=== PATIENT | male | born 1960 | race Caucasian/White ===

== ENCOUNTER 2018-01-11 22:40 | Emergency (ER) | payer OTHER ==
[~2018-01-11] VITALS: Ht 182.9 cm; Wt 90.7 kg
[2018-01-11 23:56] LABS: URINE BILIRUBIN NEGATIVE (Negative); URINE BLOOD NEGATIVE (Negative); URINE CLARITY CLEAR; URINE COLOR YELLOW; URINE GLUCOSE-RANDOM NEGATIVE (Negative); URINE KETONES NEGATIVE (Negative); URINE LEUKOCYTES-REFLEX NEGATIVE (Negative); URINE NITRITE-REFLEX NEGATIVE (Negative); URINE PROTEIN NEGATIVE (Negative); URINE SPECIFIC GRAVITY <= 1.005 (1.005-1.030); URINE UROBILINOGEN 0.2 E.U./dl (0.2-1.0)
[2018-01-12] MEDS ORDERED: FLEXERIL PO (00:28)
[2018-01-12] MEDS ORDERED: NORCO 5-325 TA1 EACH PO (00:28)
[2018-01-12 00:39] VITALS: BP 121/77
== END 2018-01-12 00:40 | disposition home or self-care (01) ==
LOC: M.ERS 22:40
PROVIDERS: Nurse Practitioner Family
DX: S39.012A Strain of muscle, fascia and tendon of lower back, initial encounter (principal); Z88.6 Allergy status to analgesic agent; X58.XXXA Exposure to other specified factors, initial encounter; Y93.89 Activity, other specified; Y92.89 Other specified places as the place of occurrence of the external cause; Y99.8 Other external cause status

== ENCOUNTER → 2018-12-24 | Outpatient (CLI) | payer OTHER ==
[~2018-12-24] MED LIST: FLEXERIL PO; NORCO 5-325 TA1 EACH PO
== END ==
LOC: M.ULTRA 10:30
DX: K76.0 Fatty (change of) liver, not elsewhere classified (principal); R74.8 Abnormal levels of other serum enzymes

== ENCOUNTER 2020-11-02 13:30 | Emergency (ER) | payer OTHER ==
[~2020-11-02] VITALS: Ht 182.9 cm; Wt 93.0 kg
[2020-11-02 17:07] VITALS: BP 141/92
== END 2020-11-02 17:11 | disposition home or self-care (01) ==
LOC: M.ERS 13:30
DX: S93.491A Sprain of other ligament of right ankle, initial encounter (principal); S80.811A Abrasion, right lower leg, initial encounter; Z88.6 Allergy status to analgesic agent; W11.XXXA Fall on and from ladder, initial encounter; Y93.89 Activity, other specified; Y92.89 Other specified places as the place of occurrence of the external cause; Y99.8 Other external cause status

== ENCOUNTER 2021-04-06 16:48 | Emergency (ER) | payer OTHER ==
[~2021-04-06] VITALS: Ht 182.9 cm; Wt 99.8 kg
[~2021-04-06 16:48] MED LIST changes: -HYDROCODON-ACE1 EAC7 PO; -ZOFRAN ODT4 MG PO
[2021-04-06 19:33] LABS: INFLUENZA A ANTIGEN Negative (Negative)
[2021-04-06 20:15] LABS: ABSOLUTE BASOPHILS 0.1 thou/uL (0.0-0.2); ABSOLUTE EOSINOPHILS 0.2 thou/uL (0.0-0.7); ABSOLUTE LYMPHOCYTES 2.3 thou/uL (0.8-5.3); ABSOLUTE NEUTROPHILS 3.7 thou/uL (1.6-8.1); HEMATOCRIT 39.7 % (42.0-52.0); PLATELET COUNT* 252 thou/uL (150-400); WBC 6.9 thou/uL (4.0-11.0)
[2021-04-06 20:16] LABS: ABSOLUTE MONOCYTES 0.7 thou/uL (0.0-1.2); HEMOGLOBIN 13.4 gm/dL (14.0-18.0); LYMPHOCYTES 33.3 %; MCH 31.2 pg (26.0-34.0); MCHC 33.8 g/dL (28.0-37.0); MCV 92.4 fL (80.0-100.0); MONOCYTES 9.4 %; NUCLEATED RBCS 0 /100WBC; POLYS 53.3 %; RBC 4.29 mil/uL (4.50-6.00); RDW-CV 13.7 % (10.5-14.5)
[2021-04-06 20:21] LABS: CALCIUM 9.6 mg/dL (8.5-10.1); CREATININE 0.9 mg/dL (0.6-1.3); POTASSIUM 3.8 mmol/L (3.5-5.1)
[2021-04-06 20:38] LABS: TOTAL BILIRUBIN 1.3 mg/dL (<0.1-1.0); TOTAL PROTEIN 6.6 g/dL (6.4-8.2)
[2021-04-06 21:06] LABS: URINE BILIRUBIN NEGATIVE (Negative); URINE BLOOD NEGATIVE (Negative); URINE CLARITY CLEAR; URINE COLOR YELLOW; URINE GLUCOSE-RANDOM NEGATIVE (Negative); URINE KETONES NEGATIVE (Negative); URINE LEUKOCYTES NEGATIVE (Negative); URINE NITRITE NEGATIVE (Negative); URINE PROTEIN NEGATIVE (Negative); URINE SPECIFIC GRAVITY 1.015 (1.005-1.030); URINE UROBILINOGEN 0.2 E.U./dl (0.2-1.0)
[2021-04-06] MEDS ORDERED: HYDROCODON-ACE1 EAC7 PO (23:21)
[2021-04-06] MEDS ORDERED: ZOFRAN ODT4 MG PO (23:21)
[2021-04-06 23:43] VITALS: BP 123/86
--- NOTE | 2021-04-07 11:43 | EKG ---
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
== END 2021-04-06 23:43 | disposition home or self-care (01) ==
LOC: M.ERS 16:48
PROVIDERS: Physician Assistant
DX: S80.11XA Contusion of right lower leg, initial encounter (principal); Z20.822 Contact with and (suspected) exposure to COVID-19; K85.90 Acute pancreatitis without necrosis or infection, unspecified; I25.10 Atherosclerotic heart disease of native coronary artery without angina pectoris; J10.1 Influenza due to other identified influenza virus with other respiratory manifestations; Z98.890 Other specified postprocedural states; Z88.5 Allergy status to narcotic agent; X58.XXXA Exposure to other specified factors, initial encounter; Y93.89 Activity, other specified; Y92.89 Other specified places as the place of occurrence of the external cause; Y99.8 Other external cause status

== ENCOUNTER → 2021-04-06 | Outpatient (CLI) | payer OTHER ==
[~2021-04-06] MED LIST changes: +HYDROCODON-ACE1 EAC7 PO; +ZOFRAN ODT4 MG PO
[2021-04-06 15:41] LABS: ABSOLUTE BASOPHILS 0.1 thou/uL (0.0-0.2); ABSOLUTE EOSINOPHILS 0.2 thou/uL (0.0-0.7); ABSOLUTE LYMPHOCYTES 2.7 thou/uL (0.8-5.3); ABSOLUTE MONOCYTES 0.6 thou/uL (0.0-1.2); ABSOLUTE NEUTROPHILS 3.9 thou/uL (1.6-8.1); BASOPHILS 1.2 %; EOSINOPHILS 3.2 %; HEMATOCRIT 40.7 % (42.0-52.0); HEMOGLOBIN 14.1 gm/dL (14.0-18.0); LYMPHOCYTES 35.9 %; MCH 31.7 pg (26.0-34.0); MCHC 34.7 g/dL (28.0-37.0); MCV 91.3 fL (80.0-100.0); MONOCYTES 7.5 %; MPV 7.9 fl. (7.2-11.1); NUCLEATED RBCS 0 /100WBC; PLATELET COUNT* 267 thou/uL (150-400); POLYS 52.2 %; RBC 4.45 mil/uL (4.50-6.00); RDW-CV 13.6 % (10.5-14.5); WBC 7.5 thou/uL (4.0-11.0)
[2021-04-06 15:51] LABS: ALBUMIN 3.1 g/dL (3.4-5.0); CALCIUM 9.7 mg/dL (8.5-10.1); POTASSIUM 3.6 mmol/L (3.5-5.1); TOTAL BILIRUBIN 1.3 mg/dL (<0.1-1.0); TOTAL PROTEIN 6.9 g/dL (6.4-8.2)
== END ==
LOC: M.LAB 14:51
PROVIDERS: ATTEND Specialist
DX: R10.821 Right upper quadrant rebound abdominal tenderness (principal); R05.9 Cough, unspecified

== ENCOUNTER → 2021-05-16 | Outpatient (CLI) | payer OTHER ==
[~2021-05-16] MED LIST changes: +HYDROCODON-ACE1 EAC7 PO; +ZOFRAN ODT4 MG PO
== END ==
LOC: M.RAD 13:25
PROVIDERS: ATTEND Family Medicine
DX: M25.511 Pain in right shoulder (principal)